=== PATIENT | female | born 1940 ===

== ENCOUNTER → 2020-09-26 08:06 | Outpatient (CLI) | payer OTHER | END | disposition home or self-care (01) | LOC: MAMO-SONO 08:06 | PROVIDERS: ATTEND Internal Medicine | DX: R10.84 Generalized abdominal pain (principal); Z12.11 Encounter for screening for malignant neoplasm of colon; M81.8 Other osteoporosis without current pathological fracture; E87.0 Hyperosmolality and hypernatremia; E27.1 Primary adrenocortical insufficiency; M89.8X9 Other specified disorders of bone, unspecified site; E78.49 Other hyperlipidemia; M54.5 Low back pain; E03.8 Other specified hypothyroidism; H25.10 Age-related nuclear cataract, unspecified eye; I11.9 Hypertensive heart disease without heart failure; H25.13 Age-related nuclear cataract, bilateral; M81.0 Age-related osteoporosis without current pathological fracture ==

== ENCOUNTER 2020-10-23 14:15 | Outpatient (CLI) | payer OTHER | END 2020-10-23 14:23 | disposition home or self-care (01) | LOC: NUCLEAR 14:15 | PROVIDERS: ATTEND Internal Medicine | DX: M81.0 Age-related osteoporosis without current pathological fracture (principal) ==